=== PATIENT | male | born 1975 | race Two or more races ===

== ENCOUNTER 2020-03-31 05:06 | Day surgery (SDC) | payer OTHER ==
[~2020-03-31] VITALS: Ht 180.3 cm; Wt 113.4 kg
[2020-03-31] MEDS ORDERED: FORTAMET500 MG (05:37)
[2020-03-31] MEDS ORDERED: BENICAR40 MG (05:37)
== END 2020-03-31 13:15 | disposition home or self-care (01) ==
LOC: ER 05:06 → CIR.AMB 08:29
PROVIDERS: ATTEND Colon & Rectal Surgery
DX: K60.5 Anorectal fistula (principal); K64.5 Perianal venous thrombosis; Z20.828 Contact with and (suspected) exposure to other viral communicable diseases